=== PATIENT | female | born 1955 | race Caucasian/White ===

== ENCOUNTER → 2017-07-10 | Outpatient (CLI) | payer BC | LOC: COL.RAD 08:17 | DX: M16.11 Unilateral primary osteoarthritis, right hip (principal); S73.101A Unspecified sprain of right hip, initial encounter; R60.0 Localized edema; M94.8X8 Other specified disorders of cartilage, other site | CPT/HCPCS: A9585; Q9967 ==

== ENCOUNTER → 2017-09-18 | Outpatient (CLI) | payer BC | LOC: COL.LAB 11:34 | DX: Z01.812 Encounter for preprocedural laboratory examination (principal) ==